=== PATIENT | male | born 1990 | race American Indian/Alaskan Native ===

== ENCOUNTER 2021-05-17 17:07 | Emergency (ER) | payer MEDICAID ==
[2021-05-17] MEDS ORDERED: ACETAMINOPHEN 325 MG TAB PO ONE (19:07)
[2021-05-17 20:12] LABS: Basophils % (Auto) 0.4 % (0.0-1.8); Eosinophils % (Auto) 0.2 % (0.0-4.3); Hematocrit 39.5 % (35.5-45.6); Hemoglobin 12.7 gm/dl (11.8-15.2); Lymphocytes # (Auto) 2.1 K/mm3 (1.2-5.4); Lymphocytes % (Auto) 23.9 % (13.4-35.0); Mean Corpuscular HGB Conc 32 % (32-34); Mean Corpuscular Volume 93 fl (84-94); Monocytes # (Auto) 0.5 K/mm3 (0.0-0.8); Monocytes % (Auto) 6.1 % (0.0-7.3); Platelet Count 199 K/mm3 (140-440); Red Blood Count 4.23 M/mm3 (3.65-5.03); Red Cell Distribution Width 14.3 % (13.2-15.2)
[2021-05-17 20:27] LABS: Alanine Aminotransferase 15 units/L (7-56); Albumin 4.6 g/dL (3.9-5); Blood Urea Nitrogen 7 mg/dL (9-20); Calcium 9.5 mg/dL (8.4-10.2); Hemolysis Index 10
[2021-05-17 20:34] LABS: BUN/Creatinine Ratio 14
--- NOTE | 2021-05-17 21:12 | Emergency Department Report ---
ED General Adult HPI - General Chief complaint: Headache Stated complaint: HEADACHE Time Seen by Provider: 05/17/21 19:20 Source: patient Mode of arrival: Ambulatory Limitations: Altered Mental Status - History of Present Illness Initial comments: History is limited due to patient's medical history of developmental delay Nurse received report from EMS. EMS report is not readily available. Nurse advised me that patient was picked up from a [employer] and complained of headache. I spoke with patient's mother which is his caregiver and she reports that she is not sure why the ambulance was called. She states that she has a history of seizures and takes Keppra. She states that she does not believe he missed any doses. She states she is not sure if he had a seizure. She states that the sister knows more information and she will speak with the sister and call back Severity scale (0 -10): 0 - Related Data Home Medications Medication Instructions Recorded Confirmed Last Taken Vimpat 01/13/21 Unknown Previous Rx's Medication Instructions Recorded Last Taken Type levETIRAcetam [Keppra TAB] 1,000 mg PO BID #120 tablet 01/15/21 Unknown Rx Allergies Allergy/AdvReac Type Severity Reaction Status Date / Time No Known Allergies Allergy Verified 01/13/21 00:51 ED Review of Systems ROS: Stated complaint: HEADACHE Other details as noted in HPI Comment: Unobtainable due to pts medical conditions ED Past Medical Hx - Past Medical History Hx Seizures: Yes - Social History Smoking Status: Never Smoker - Medications Home Medications: Home Medications Medication Instructions Recorded Confirmed Last Taken Type Vimpat 01/13/21 Unknown History levETIRAcetam [Keppra TAB] 1,000 mg PO BID #120 tablet 01/15/21 Unknown Rx ED Physical Exam - General Limitations: Altered Mental Status General appearance: alert, in no apparent distress - Head Head exam: Present: atraumatic, normocephalic - Eye Eye exam: Present: normal appearance - ENT ENT exam: Present: mucous membranes moist - Respiratory Respiratory exam: Present: normal lung sounds bilaterally. Absent: respiratory distress, wheezes, rales, rhonchi, stridor, chest wall tenderness, accessory muscle use, decreased breath sounds, prolonged expiratory - Cardiovascular Cardiovascular Exam: Present: regular rate, normal rhythm, normal heart sounds. Absent: systolic murmur, diastolic murmur, rubs, gallop - GI/Abdominal GI/Abdominal exam: Present: soft, normal bowel sounds. Absent: distended, tenderness, guarding, rebound, rigid - Neurological Exam Neurological exam: Present: alert, normal gait. Absent: motor sensory deficit - Psychiatric Psychiatric exam: Present: normal affect, normal mood - Skin Skin exam: Present: warm, dry, intact ED Course Vital Signs 05/17/21 18:46 Temperature 97.4 F L Pulse Rate 74 Respiratory 18 Rate Blood Pressure 140/97 [Right] O2 Sat by Pulse 98 Oximetry ED Medical Decision Making - Lab Data Result diagrams: 05/17/21 19:37 05/17/21 19:37 - Radiology Data Radiology results: report reviewed Ordering Physician: DEANNE LEE Date of Service: 05/17/21 Procedure(s): CT head/brain wo con Accession Number(s): [id number] cc: DEANNE LEE CT BRAIN: 05/17/2021 INDICATION / CLINICAL INFORMATION: possible seizure, CHE reported by EMS. COMPARISON: CT brain 11/05/2020 FINDINGS: BRAIN/INTRACRANIAL STRUCTURES: Unenhanced CT images of the brain demonstrate no evidence of acute abnormality. Ventricles are normal in size. A prominent cavum septum pellucidum is present. This is a normal variant, and unchanged when compared to the prior exam. There is no evidence of acute ischemic injury, hemorrhage, or mass. There are no abnormal extra- axial fluid collections. EXTRACRANIAL STRUCTURES: Unremarkable. IMPRESSION: No acute abnormality. No change when compared to 11/05/[address] scans at this location are performed using dose reduction to ALARA by means of automated exposure control. Signer Name: Steve Solano MD Signed: 05/17/2021 9:12 PM Workstation Name: [id number] Transcribed By: KANE Dictated By: Steve Solano MD Electronically Authenticated By: Steve Solano MD Signed Date/Time: 05/17/212111 DD/ 09 TD/TT: - Medical Decision Making History is limited due to patient's medical history of developmental delay Nurse received report from EMS. EMS report is not readily available. Nurse ad vised me that patient was picked up from a [employer] and complained of headache. I spoke with patient's mother which is his caregiver and she reports that she is not sure why the ambulance was called. She states that she has a history of seizures and takes Keppra. She states that she does not believe he missed any doses. She states she is not sure if he had a seizure. She states that the si ster knows more information and she will speak with the sister and call back Vitals are stable. Patient has no physical complaints. Patient was given Tylenol prior to my examination he states he does not have a headache currently. Labs are normal. CT head No acute abnormality. No change when compared to 11/05/2020. Patient given IV Keppra while in the emergency department. Patient was observed for multiple hours in the ED and had no complications or evidence of seizure. Patient is stable for discharge. Critical care attestation.: If time is entered above; I have spent that time in minutes in the direct care of this critically ill patient, excluding procedure time. ED Disposition Clinical Impression: Seizure disorder Headache Qualifiers: Headache type: unspecified Headache chronicity pattern: acute headache Intractability: not intractable Qualified Code(s): R51.9 - Headache, unspecified Disposition: 01 HOME / SELF CARE / HOMELESS Is pt being admited?: No Does the pt Need Aspirin: No Condition: Stable Additional Instructions: Please take your seizure medication as prescribed by your doctor. Follow-up with your primary care doctor. Return to emergency room for any new or worsening symptoms. Referrals: TESS BACON MD [Primary Care Provider] - 3-5 Days Time of Disposition: 22:55 Print Language: KYRGYZ
--- NOTE | 2021-05-17 21:17 | Cat Scan Report ---
CT BRAIN: 05/17/2021 INDICATION / CLINICAL INFORMATION: possible seizure, CHE reported by EMS. COMPARISON: CT brain 11/05/2020 FINDINGS: BRAIN/INTRACRANIAL STRUCTURES: Unenhanced CT images of the brain demonstrate no evidence of acute abn ormality. Ventricles are normal in size. A prominent cavum septum pellucidum is present. This is a normal varia nt, and unchanged when compared to the prior exam. There is no evidence of acute ischemic injury, hemorrhage, or mass. There are no abnormal extra-axial fluid collections. EXTRACRANIAL STRUCTURES: Unremarkable. IMPRESSION: No acute abnormality. No change when compared to 11/05/[address] scans at this location are performed using dose reduction to ALARA by means of automated expos ure control. Signer Name: Steve Solano MD Signed: 05/17/2021 9:12 PM Workstation Name: [id number]
[2021-05-17] MEDS: levETIRAcetam 1,000 MG in DEXTROSE 5% IN WATER 100 ML IV SCH (22:31)
[2021-05-18 09:54] VITALS: BP 140/102
[2021-05-18] MEDS: levETIRAcetam 1,000 MG in DEXTROSE 5% IN WATER 100 ML IV SCH (10:18)
== END 2021-05-18 10:45 | disposition home or self-care (01) ==
LOC: ED 17:07
DX: G40.909 Epilepsy, unspecified, not intractable, without status epilepticus (principal); R51.9 Headache, unspecified; Z79.899 Other long term (current) drug therapy
CPT/HCPCS: 36415; 70450; 80053; 82550; 83690; 83735; 85025; 96365; 96376; 99283; J1953; J7060

== ENCOUNTER 2021-08-19 12:50 | Emergency (ER) | payer MEDICAID ==
[2021-08-19] MEDS ORDERED: levETIRAcetam 1000 MG/NS 0.75% 1,000 MG/100 ML BAG IV ONE (13:20)
--- NOTE | 2021-08-19 13:22 | Event Note ---
Date: 08/19/21 Medical screening examination note: 30-year-old gentleman with reported history of seizure disorder, brought to the hospital by EMS with a reported complaint of possible seizure [place]. As per verbal report from nursing team, there is no head trauma. Patient currently presents is awake and alert, protecting airway, moving 4 extremities, denies physical pain, and he is in no acute distress. Obtain appropriate laboratory studies, EKG, urinalysis, x-ray the chest, loaded with Keppra. Detailed history and physical to be performed by myself or oncoming provider. Lab Results 08/19/21 08/19/21 08/19/21 Range/Units 13:51 13:51 13:51 WBC 9.5 (4.5-11.0) K/mm3 RBC 4.93 (3.65-5.03) M/mm3 Hgb 15.0 (11.8-15.2) gm/dl Hct 44.9 (35.5-45.6) % MCV 91 (84-94) fl MCH 30 (28-32) pg MCHC 33 (32-34) % RDW 13.6 (13.2-15.2) % Plt Count 195 (140-440) K/mm3 Sodium 143 (137-145) mmol/L Potassium 3.9 (3.6-5.0) mmol/L Chloride 103.9 (98-107) mmol/L Carbon Dioxide 27 (22-30) mmol/L Anion Gap 16 mmol/L BUN 16 (9-20) mg/dL Creatinine 0.8 (0.8-1.3) mg/dL Estimated GFR > 60 ml/min BUN/Creatinine Ratio 20 % Glucose 82 (75-100) mg/dL Calcium 10.6 H (8.4-10.2) mg/dL Magnesium 2.00 (1.7-2.3) mg/dL Total Bilirubin 0.40 (0.1-1.2) mg/dL AST 15 (5-40) units/L ALT 18 (7-56) units/L Alkaline Phosphatase 83 (35-129) units/L Total Creatine Kinase 157 (55-170) units/L Total Protein 8.1 (6.3-8.2) g/dL Albumin 4.8 (3.9-5) g/dL Albumin/Globulin Ratio 1.5 % Urine Color (Yellow) Urine Turbidity (Clear) Urine pH (5.0-7.0) Ur Specific [place] (1.003-1.030) Urine Protein (Negative) mg/dL Urine Glucose (UA) (Negative) mg/dL Urine Ketones (Negative) mg/dL Urine Blood (Negative) Urine Nitrite (Negative) Urine Bilirubin (Negative) Urine Urobilinogen (<2.0) mg/dL Ur Leukocyte Esterase (Negative) Urine WBC (Auto) (0.0-6.0) /HPF Urine RBC (Auto) (0.0-6.0) /HPF U Epithel Cells (Auto) (0-13.0) /HPF Calcium Oxalate Crystal Urine Mucus /HPF Plasma/Serum Alcohol < 0.01 (0-0.07) % 08/19/21 Range/Units 14:45 WBC (4.5-11.0) K/mm3 RBC (3.65-5.03) M/mm3 Hgb (11.8-15.2) gm/dl Hct (35.5-45.6) % MCV (84-94) fl MCH (28-32) pg MCHC (32-34) % RDW (13.2-15.2) % Plt Count (140-440) K/mm3 Sodium (137-145) mmol/L Potassium (3.6-5.0) mmol/L Chloride (98-107) mmol/L Carbon Dioxide (22-30) mmol/L Anion Gap mmol/L BUN (9-20) mg/dL Creatinine (0.8-1.3) mg/dL Estimated GFR ml/min BUN/Creatinine Ratio % Glucose (75-100) mg/dL Calcium (8.4-10.2) mg/dL Magnesium (1.7-2.3) mg/dL Total Bilirubin (0.1-1.2) mg/dL AST (5-40) units/L ALT (7-56) units/L Alkaline Phosphatase (35-129) units/L Total Creatine Kinase (55-170) units/L Total Protein (6.3-8.2) g/dL Albumin (3.9-5) g/dL Albumin/Globulin Ratio % Urine Color Yellow (Yellow) Urine Turbidity Clear (Clear) Urine pH 5.0 (5.0-7.0) Ur Specific [place] 1.025 (1.003-1.030) Urine Protein <15 mg/dl (Negative) mg/dL Urine Glucose (UA) Neg (Negative) mg/dL Urine Ketones Tr (Negative) mg/dL Urine Blood Neg (Negative) Urine Nitrite Neg (Negative) Urine Bilirubin Neg (Negative) Urine Urobilinogen 4.0 (<2.0) mg/dL Ur Leukocyte Esterase Neg (Negative) Urine WBC (Auto) 3.0 (0.0-6.0) /HPF Urine RBC (Auto) 6.0 (0.0-6.0) /HPF U Epithel Cells (Auto) < 1.0 (0-13.0) /HPF Calcium Oxalate Crystal 2+ Urine Mucus 3+ /HPF Plasma/Serum Alcohol (0-0.07) %
[2021-08-19 14:22] LABS: Hematocrit 44.9 % (35.5-45.6); Mean Corpuscular HGB Conc 33 % (32-34); Mean Corpuscular Volume 91 fl (84-94); Platelet Count 195 K/mm3 (140-440); Red Blood Count 4.93 M/mm3 (3.65-5.03); Red Cell Distribution Width 13.6 % (13.2-15.2)
[2021-08-19 14:40] LABS: Alanine Aminotransferase 18 units/L (7-56); Albumin 4.8 g/dL (3.9-5); BUN/Creatinine Ratio 20; Blood Urea Nitrogen 16 mg/dL (9-20); Calcium 10.6 mg/dL (8.4-10.2); Hemolysis Index 10
--- NOTE | 2021-08-19 14:59 | XRay Report ---
CHEST 1 VIEW INDICATION / CLINICAL INFORMATION: seizure. COMPARISON: 06/10/2021 FINDINGS: SUPPORT DEVICES: None. HEART / MEDIASTINUM: No significant abnormality. LUNGS / PLEURA: No significant pulmonary or pleural abnormality. No pneumothorax. ADDITIONAL FINDINGS: No significant additional findings. IMPRESSION: 1. No acute findings. Signer Name: Lee Laguerre MD Signed: 08/19/2021 2:54 PM Workstation Name: [id number]
[2021-08-19 15:12] LABS: Bilirubin,Urine NEG (Negative); Blood,Urine NEG (Negative); Color,Urine Yellow (Yellow); Protein,Urine <15 mg/dL mg/dL (Negative)
[2021-08-19 15:18] LABS: Calcium Oxalate Crystals,Urine 2+; Mucus,Urine 3+ /HPF
--- NOTE | 2021-08-19 16:48 | Emergency Department Report ---
ED Seizure HPI - General Chief Complaint: Seizure Stated Complaint: SEIZURE Time Seen by Provider: 08/19/21 14:33 Source: patient, EMS ( EMS documentation not available at time of chart dictation ), RN notes reviewed, old records reviewed Mode of arrival: Stretcher Limitations: Other (Patient is a poor historian) - History of Present Illness Initial Comments: The patient was evaluated in the emergency department for symptoms described in the history of present illness. He/she was evaluated in the context of the global COVID-19 pandemic, which necessitated consideration that the patient might be at risk for infection with the virus that causes COVID-19. Institutional protocols and algorithms that pertain to the evaluation of patients at risk for COVID-19 are in a state of rapid change based on information released by regulatory bodies including the CDC and federal and state organizations. These policies and algorithms were followed during the patient's care in the emergency department. Please note that these policies, procedures and recommendations changed on a rapid basis. This is a pleasant and cooperative 30-year-old gentleman, with a history of seizure disorder, who presents to department with EMS with a possible seizure. His past medical history includes seizure disorder, and intellectual deficit. As per verbal report from nursing team, who received verbal report from EMS, the patient did not fall or hit his head. The patient currently denies headache, neck pain, chest pain, abdominal pain, shortness of breath and urinary symptoms. He denies complaints at this time. He is observed in the department for hours, loaded with Keppra, and does not have clinical decompensation. MD Complaint: possible seizure -: This afternoon Seizure History: known seizure disorder Place: other (Patient at a store) Associated Symptoms: denies other symptoms - Related Data Home Medications Medication Instructions Recorded Confirmed Last Taken Vimpat 01/13/21 Unknown Previous Rx's Medication Instructions Recorded Last Taken Type levETIRAcetam [Keppra TAB] 1,000 mg PO BID #120 tablet 08/19/21 Unknown Rx Allergies Allergy/AdvReac Type Severity Reaction Status Date / Time No Known Allergies Allergy Verified 01/13/21 00:51 ED Review of Systems ROS: Stated complaint: SEIZURE Other details as noted in HPI Constitutional: denies: fever Eyes: denies: eye discharge ENT: denies: epistaxis Respiratory: denies: cough Cardiovascular: denies: chest pain Gastrointestinal: denies: abdominal pain Genitourinary: denies: dysuria Neurological: denies: weakness ED Past Medical Hx - Past Medical History Hx Seizures: Yes Additional medical history: autism - Social History Smoking Status: Never Smoker - Medications Home Medications: Home Medications Medication Instructions Recorded Confirmed Last Taken Type Vimpat 01/13/21 Unknown History levETIRAcetam [Keppra TAB] 1,000 mg PO BID #120 tablet 08/19/21 Unknown Rx ED Physical Exam - General Limitations: Other (Developmental delay) General appearance: alert, in no apparent distress - Head Head exam: Present: atraumatic, normocephalic - Eye Eye exam: Present: normal appearance, EOMI. Absent: nystagmus - ENT ENT exam: Present: normal exam, normal orophraynx, mucous membranes moist, normal external ear exam - Neck Neck exam: Present: normal inspection, full ROM. Absent: tenderness, meningismus - Respiratory Respiratory exam: Present: normal lung sounds bilaterally. Absent: respiratory distress, wheezes, rales, rhonchi, stridor, decreased breath sounds - Cardiovascular Cardiovascular Exam: Present: regular rate, normal rhythm, normal heart sounds. Absent: bradycardia, tachycardia, irregular rhythm, systolic murmur, diastolic murmur, rubs, gallop - GI/Abdominal GI/Abdominal exam: Present: soft. Absent: distended, tenderness, guarding, re bound, rigid, pulsatile mass - Rectal Rectal exam: Present: deferred - Extremities Exam Extremities exam: Present: normal inspection, full ROM, other (2+ pulses noted in the bilateral upper and lower extremities. There is no palpable cord. negative Homans sign. Muscular compartments are soft. The pelvis is stable.). Absent: pedal edema, calf tenderness - Back Exam Back exam: Present: normal inspection. Absent: tenderness, CVA tenderness (R), CVA tenderness (L), paraspinal tenderness, vertebral tenderness - Neurological Exam Neurological exam: Present: alert, other (No facial droop. Tongue midline. Extraocular movements intact bilaterally. Facial sensation intact to light touch in V1, V2, V3 distribution bilaterally. 5 and a 5 strength in 4 extremities. Sensation intact to light touch in 4 extremities.) - Psychiatric Psychiatric exam: Present: flat affect - Skin Skin exam: Present: warm, dry, intact, normal color. Absent: rash ED Course Vital Signs 08/19/21 08/19/21 08/19/21 13:50 14:00 14:16 Temperature 98.4 F Pulse Rate 94 H 91 H 85 Respiratory 13 16 13 Rate Blood Pressure 128/83 130/83 O2 Sat by Pulse 99 99 99 Oximetry 08/19/21 08/19/21 08/19/21 14:30 14:46 15:00 Temperature Pulse Rate 86 84 85 Respiratory 16 19 12 Rate Blood Pressure 130/83 130/83 128/60 O2 Sat by Pulse Oximetry 08/19/21 08/19/21 08/19/21 15:15 15:30 16:41 Temperature Pulse Rate 86 88 89 Respiratory 15 14 17 Rate Blood Pressure 121/78 121/78 123/80 O2 Sat by Pulse 98 97 Oximetry 08/19/21 16:46 Temperature Pulse Rate 88 Respiratory 16 Rate Blood Pressure 137/85 O2 Sat by Pulse Oximetry - Reevaluation(s) Reevaluation #1: 08/19/21 16:56 Differential diagnosis, include but not limited to: Seizure, pneumonia, UTI, electrolyte derangement Assessment and plan: 30-year-old gentleman, who is afebrile, with reassuring vital signs, with a nonfocal motor neurologic examination, with a known history of seizure, with a history of possible seizure. His physical exam is benign and noncontributory. He is loaded with Keppra in the emergency room, and he has be en observed for hours, without seizure or convulsive event. His laboratory studies are nonactionable, a chest x-ray is unremarkable, and urinalysis does not indicate need for antibiotics. We can refill his Keppra, and he can follow-up with his outpatient neurologist. - Pulse Oximetry Interpretation Digit-Finger Initial Pulse Oximetry Readin O2 Sat by Pulse Oximetry: 99 Actions Taken: none ED Medical Decision Making - Lab Data Result diagrams: 08/19/21 13:51 08/19/21 13:51 Vital Signs 08/19/21 08/19/21 08/19/21 13:50 14:00 14:16 Pulse Rate 94 H 91 H 85 Respiratory 13 16 13 Rate Blood Pressure 128/83 130/83 O2 Sat by Pulse 99 99 99 Oximetry 08/19/21 08/19/21 08/19/21 14:30 14:46 15:00 Pulse Rate 86 84 85 Respiratory 16 19 12 Rate Blood Pressure 130/83 130/83 128/60 O2 Sat by Pulse Oximetry 08/19/21 08/19/21 08/19/21 15:15 15:30 16:41 Pulse Rate 86 88 89 Respiratory 15 14 17 Rate Blood Pressure 121/78 121/78 123/80 O2 Sat by Pulse 98 97 Oximetry 08/19/21 16:46 Pulse Rate 88 Respiratory 16 Rate Blood Pressure 137/85 O2 Sat by Pulse Oximetry Temperature is 98.4 degrees orally - EKG Data -: EKG Interpreted by Pa EKG shows normal: sinus rhythm Rate: normal - EKG Data 08/19/21 16:56 The EKG is interpreted at 13: 29 Sinus rhythm, rate 88 bpm. Normal axis, normal P wave axis, high left ventricular voltage, QTC 4 4 4 ms. There is no endorsement of chest pain. This is an abnormal EKG. This is not a STEMI - Radiology Data Radiology results: pending, report reviewed, image reviewed CHEST 1 VIEW INDICATION / CLINICAL INFORMATION: seizure. COMPARISON: 06/10/2021 FINDINGS: SUPPORT DEVICES: None. HEART / MEDIASTINUM: No significant abnormality. LUNGS / PLEURA: No significant pulmonary or pleural abnormality. No pneumothorax. ADDITIONAL FINDINGS: No significant additional findings. IMPRESSION: 1. No acute findings. Signer Name: Lee Laguerre MD Signed: 08/19/2021 1:54 PM Workstation Name: [id number] Critical care attestation.: If time is entered above; I have spent that time in minutes in the direct care of this critically ill patient, excluding procedure time. ED Disposition Clinical Impression: Seizure disorder Disposition: 01 HOME / SELF CARE / HOMELESS Is pt being admited?: No Does the pt Need Aspirin: No Condition: Good Instructions: Seizure, Adult Additional Instructions: Do not drive or operate motor vehicles for the next 6 months, or until cleared to do so by a primary care doctor or neurologist. Avoid consumption of alcohol, tobacco, smoke products, and please follow-up with your outpatient primary care doctor or neurologist within the next week. Please continue current seizure medications. Please return to the emergency room right away with new pain, worsened pain, migration of pain, projectile vomiting, change in mental status, confusion, inability tolerate liquid feeds, new, worsened or different symptoms not present on the initial emergency room evaluation Referrals: DULCE MAX MD [Referring] - 3-5 Days DANAY HERNANDEZ MD [Staff Physician] - 3-5 Days [facility] [Provider Group] - 3-5 Days
[2021-08-19] MEDS: levETIRAcetam 500 MG TAB PO SCH (22:43)
--- NOTE | 2021-08-20 10:49 | Electrocardiograph Report ---
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
[2021-08-20 15:16] VITALS: BP 116/67
[2021-08-20] MEDS: levETIRAcetam 500 MG TAB PO SCH (15:19)
== END 2021-08-20 18:12 | disposition home or self-care (01) ==
LOC: ED 12:50
DX: G40.909 Epilepsy, unspecified, not intractable, without status epilepticus (principal); F84.0 Autistic disorder
CPT/HCPCS: 36415; 71045; 80053; 81001; 82550; 83735; 85027; 93005; 96374; 99284; J1953; 80320; G0480

== ENCOUNTER 2021-09-08 18:51 | Emergency (ER) | payer MEDICAID ==
--- NOTE | 2021-09-08 19:49 | Emergency Department Report ---
HPI - General Chief Complaint: Altered Mental Status PUI?: No Time Seen by Provider: 09/08/21 19:27 - HPI HPI: 30-year-old male with a documented history of seizure disorder, per chart review, questionable history of intellectual development delay,, presents for evaluation. EMSs report is not readily available. Patient's oncoming nurse did not receive report from the prior nurse and so the patient's etiology with respect to reasoning for presenting to the emergency department is unclear. Patient's mother nor his sister nor any other family member is present to provide additional HPI. Patient denies any symptoms when asked about this physician at the patient's bedside. Pain 0 out of 10. ED Past Medical Hx - Past Medical History Previous Medical History?: Yes Hx Seizures: Yes Additional medical history: autism - Social History Smoking Status: Never Smoker Substance Use Type: Other (Unknown) - Medications Home Medications: Home Medications Medication Instructions Recorded Confirmed Last Taken Type Vimpat 01/13/21 Unknown History levETIRAcetam [Keppra TAB] 1,000 mg PO BID #120 tablet 08/19/21 Unknown Rx ED Review of Systems ROS: Stated complaint: AMS Other details as noted in HPI Comment: Unobtainable due to pts medical conditions Physical Exam - Physical Exam Vital Signs: Vital Signs 09/08/21 18:53 Temperature 97.9 F Pulse Rate 88 Respiratory 16 Rate Blood Pressure 130/80 [Left] O2 Sat by Pulse 97 Oximetry General: Gen: pt is well appearing, no acute distress; patient observed rocking back and forth in his stretcher, smiling, making hand gestures to himself, calm, cooperative, no acute distress HEENT: Normocephalic atraumatic pupils equally round and reactive to light ext raocular muscles intact sclera anicteric Neck: Full range of motion, no midline spinal tenderness palpation, no JVD, no carotid bruits, no nuchal rigidity CVS: S1-S2 regular rate and rhythm with no gallops rubs or murmurs, chest wall nontender Pulmonary: Clear to auscultation bilaterally, no wheezes rales or rhonchi Abdomen: Soft nondistended nontender no guarding or rebound tenderness, no palpable deformities or step-offs, normal active bowel sounds, no hepatosplenomegaly, no pulsatile masses : Deferred Extremities: No cyanosis no clubbing no edema, intact distal peripheral pulses, Integumentary: Skin normal, no petechia no purpura no abscess no lacerations no evidence of trauma no evidence of infection Neuro: Patient is awake alert and oriented to person place time situation, cranial nerves II through XII intact, no focal neurodeficits, sensation grossly tact, ambulates with normal steady gait Psych: Calm cooperative, mood affect normal ED Course Vital Signs 09/08/21 18:53 Temperature 97.9 F Pulse Rate 88 Respiratory 16 Rate Blood Pressure 130/80 [Left] O2 Sat by Pulse 97 Oximetry - Reevaluation(s) Reevaluation #1: 09/08/21 19:46 Pt's mother documented phone number of: [phone] telephoned by me. Per voicemail system, message cannot be left. Pt's sister's documented phone number of: [phone] telephoned by me. Phone call made by me: Phone rings and no one answers. Will attempt repeat telephone call. Reevaluation #2: 09/08/21 20:16 Patient reassessed, he remains comfortable and calm, he denies any complaints, no altered sensorium, postictal state, or seizure activity appreciated. I again made multiple repeat telephone calls to the aforementioned telephone numbers to attempt to obtain direct contact with the patient's mother and sister. I am unable to reach anyone. Reevaluation #3: 09/08/21 21:31 Patient observed coloring on paper and with crayons. Mental status remains unchanged. He denies any complaints but is requesting food. No seizure-like activity witnessed by this provider other staff members. We will continue to monitor. Reevaluation #4: 09/08/21 21:31 Repeat call made to family members at the numbers documented in the patient's electronic health record. During this time I was able to leave a voicemail message and requested a return call via the telephone number provided that is listed as belonging to the patient's sister, at [phone]. Repeat call made to phone number listed as having belong to the patient's number at [phone]. No ability to leave a voicemail and the phone was not answered by anyone. ED Medical Decision Making - Lab Data Result diagrams: 09/08/21 20:01 09/08/21 20:01 - Medical Decision Making 30-year-old male with seizure disorder brought in by EMS [facility] Vital signs stable. Patient is well-appearing and denies any complaints. He has been observed for several hours without any manifestation and altered sensorium, postictal state, or seizure disorder. Seru m labs reviewed and they are grossly unremarkable. Patient has been medically cleared by this provider. Multiple attempts were made by myself to telephone the patient's mother as well as his sister via the telephone numbers documented in his prior ER visit. I was unsuccessfully able to reach anyone. Case management consult placed but given that it is currently Friday night, they are not available to provide immediate assistance with obtaining successful contact with the patient's family members and therefore the patient is not a safe discharge at this time. Patient will be held overnight in the emergency department until a safe discharge can be obtained. Due to change in provider shift time @ 12:00am, pt signed out to Dr. Jem Mcgee for overnight management. Critical care attestation.: If time is entered above; I have spent that time in minutes in the direct care of this critically ill patient, excluding procedure time. ED Disposition Clinical Impression: Wandering Disposition: 30 STILL A PATIENT Is pt being admited?: No Does the pt Need Aspirin: No Condition: Stable
[2021-09-08 20:45] LABS: Basophils % (Auto) 0.5 % (0.0-1.8); Eosinophils % (Auto) 0.2 % (0.0-4.3); Hematocrit 43.1 % (35.5-45.6); Hemoglobin 14.2 gm/dl (11.8-15.2); Lymphocytes # (Auto) 1.1 K/mm3 (1.2-5.4); Lymphocytes % (Auto) 16.3 % (13.4-35.0); Mean Corpuscular HGB Conc 33 % (32-34); Mean Corpuscular Volume 91 fl (84-94); Monocytes # (Auto) 0.7 K/mm3 (0.0-0.8); Monocytes % (Auto) 9.8 % (0.0-7.3); Platelet Count 213 K/mm3 (140-440); Red Blood Count 4.74 M/mm3 (3.65-5.03); Red Cell Distribution Width 13.2 % (13.2-15.2)
[2021-09-08 21:01] LABS: Alanine Aminotransferase 34 units/L (7-56); Albumin 4.9 g/dL (3.9-5); Blood Urea Nitrogen 14 mg/dL (9-20); Calcium 9.8 mg/dL (8.4-10.2); Hemolysis Index 5
[2021-09-08 21:13] LABS: BUN/Creatinine Ratio 20
[2021-09-09] MEDS ORDERED: levETIRAcetam 500 MG TAB PO SCH ×2 (10:00→17:17)
[2021-09-09] MEDS ORDERED: LORazepam 2 MG/ML VIAL IM STA (22:30)
--- NOTE | 2021-09-09 23:07 | Event Note ---
Date: 09/09/21 Of note this provider shift started at 3 PM today. Patient was not signed out to me by , the outgoing ED attending physician. I evaluated this patient again independently. He is comfortable and well-appearing. I reviewed the patient's documented progress notes throughout the night as well as throughout the day as documented by ancillary staff members. The patient is comfortable and well-appearing. He denies any complaints. Staff members report they have repeatedly attempted to telephone the patient's mother who is phone number was documented on file. She was not able to be reached successfully. Additionally per review of the patient's chart, the patient was written for his routine antiepileptic by Dr. Mcgee, and it was confirmed that these medications were provided to the patient throughout his emergency department course. Charge nurse (Belkys) has reported that given that today is Friday, there was no case management present. Plan will be to continue to await case management evaluation and suggestion, as the patient cannot be discharged to home and his health care proxy (his mother) cannot be reached. Due to change in provider shift time @ 12:00am, pt signed out to overnight ER attending physician, , for overnight management.
--- NOTE | 2021-09-10 21:20 | Event Note ---
Date: 09/10/21 This provider's shift started at 09:00pm this evening. I did not receive this patient on sign out from another provider. Upon my arrival, I was informed by the nursing staff of the pt's ED course and the documented report that the pt would be picked up by his mother. Chart reviewed. Pt is well appearing, calm, cooperative. He denies any complaints. His vitals are stable. Pt will continue to be held in the emergency department for further management by Case Management/Social Work tomorrow. Due to change in provider shift time @ 06:00am on 09/11/2021, pt signed out to oncoming ER attending, Dr. Ruggiero, for definitive management in consultation with Case Management/Social Work.
[2021-09-10] MEDS ORDERED: levETIRAcetam 500 MG TAB PO SCH (23:00)
[2021-09-11] MEDS ORDERED: LORazepam 2 MG/ML VIAL ONE ×2 (01:04→11:27)
[2021-09-11] MEDS ORDERED: LORazepam 2 MG/ML VIAL IM ONE (01:06)
[2021-09-11 02:11] LABS: Basophils # (Auto) 0.1 K/mm3 (0.0-0.1); Basophils % (Auto) 0.6 % (0.0-1.8); Eosinophils # (Auto) 0.1 K/mm3 (0.0-0.4); Eosinophils % (Auto) 1.3 % (0.0-4.3); Hematocrit 42.6 % (35.5-45.6); Lymphocytes # (Auto) 3.2 K/mm3 (1.2-5.4); Mean Corpuscular HGB Conc 33 % (32-34); Mean Corpuscular Volume 92 fl (84-94); Monocytes # (Auto) 0.6 K/mm3 (0.0-0.8); Monocytes % (Auto) 6.5 % (0.0-7.3); Platelet Count 249 K/mm3 (140-440); Red Blood Count 4.64 M/mm3 (3.65-5.03); Red Cell Distribution Width 13.5 % (13.2-15.2)
[2021-09-11] MEDS ORDERED: levETIRAcetam 1000 MG/NS 0.75% 1,000 MG/100 ML BAG IV ONE (11:36)
--- NOTE | 2021-09-11 11:36 | Event Note ---
Date: 09/11/21 I was called to hallway this patient bedside while patient actively seizing. Immediate order to be given ativan 2 mg IM x 1 as no iv line yet. Pt was waiting for case management for transportation home. Also was ordered for Keppra 1g IVPB x 1 for seizure stabilization. Pt transferred to room 21 for his treatment. Pt seizure observed to be resolving and now postictal. Will continue to observe this patient before discharge.
[2021-09-11] MEDS ORDERED: LORazepam 2 MG/ML VIAL IV ONE (11:39)
[2021-09-11 16:49] VITALS: BP 123/81
== END 2021-09-11 15:43 | disposition still patient (30) ==
LOC: ED 18:51
DX: R41.82 Altered mental status, unspecified (principal); R56.9 Unspecified convulsions
CPT/HCPCS: 36415; 80053; 80177; 83735; 84443; 85025; 96372; 96374; 99284; J1953; J2060; 80320; G0480

== ENCOUNTER 2021-10-20 16:02 | Inpatient (IN) | payer MEDICAID ==
--- NOTE | 2021-10-20 16:22 | Emergency Department Report ---
<JOHNNY ELIZONDO - Last Filed: 10/20/21 23:56> ED General Adult HPI - General Chief complaint: Seizure Stated complaint: SEIZURES PUI?: No Time Seen by Provider: 10/20/21 16:12 Source: RN/MD, EMS Mode of arrival: Stretcher Limitations: Altered Mental Status - History of Present Illness Initial comments: This is a 30-year-old male with medical history of Fragile X syndrome and also mental retardation and seizure who appears to be on Keppra likely 1000 mg twice daily and also Vimpat. Patient brought in by EMS with concerns of seizure. At the time my evaluation patient is at the entrance bay against the wall and patient appears to be postictal. No review of system was able to be obtained. Patient's airway maintains intact. Severity scale (0 -10): 0 - Related Data Home Medications Medication Instructions Recorded Confirmed Last Taken Vimpat 01/13/21 Unknown Previous Rx's Medication Instructions Recorded Last Taken Type Lacosamide [Vimpat] 100 mg PO Q12HR #60 tablet 11/07/20 Unknown Rx levETIRAcetam [Keppra TAB] 500 mg PO BID 30 Days #60 tablet 11/26/20 Unknown Rx levETIRAcetam [Keppra TAB] 500 mg PO BID #60 tablet 06/10/21 Unknown Rx levETIRAcetam [Keppra TAB] 1,000 mg PO BID #120 tablet 08/19/21 Unknown Rx levETIRAcetam [Keppra TAB] 1,000 mg PO BID 30 Days #60 tablet 09/11/21 Unknown Rx NS Allergies Allergy/AdvReac Type Severity Reaction Status Date / Time No Known Allergies Allergy Verified 10/05/21 10:50 ED Review of Systems Comment: Unobtainable due to pts medical conditions ED Past Medical Hx - Past Medical History Previous Medical History?: Yes Hx Congestive Heart Failure: No Hx Diabetes: No Hx Seizures: Yes Hx Asthma: No Hx COPD: No Hx HIV: No Additional medical history: MR - Surgical History Additional Surgical History: Cannot be obtained from the patient secondary to fragile X and developmental delay - Social History Smoking Status: Unknown if ever smoked - Medications Home Medications: Home Medications Medication Instructions Recorded Confirmed Last Taken Type Lacosamide [Vimpat] 100 mg PO Q12HR #60 tablet 11/07/20 11/25/20 Unknown Rx levETIRAcetam [Keppra TAB] 500 mg PO BID 30 Days #60 tablet 11/26/20 Unknown Rx Vimpat 01/13/21 Unknown History levETIRAcetam [Keppra TAB] 500 mg PO BID #60 tablet 06/10/21 Unknown Rx levETIRAcetam [Keppra TAB] 1,000 mg PO BID #120 tablet 08/19/21 Unknown Rx levETIRAcetam [Keppra TAB] 1,000 mg PO BID 30 Days #60 tablet 09/11/21 Unknown Rx NS ED Physical Exam - General Limitations: Altered Mental Status General appearance: postictal - Head Head exam: Present: atraumatic, normocephalic, normal inspection - Eye Eye exam: Present: normal appearance, PERRL, EOMI Pupils: Present: normal accommodation - ENT ENT exam: Present: normal exam, mucous membranes moist - Neck Neck exam: Present: normal inspection, full ROM - Respiratory Respiratory exam: Present: normal lung sounds bilaterally - Cardiovascular Cardiovascular Exam: Present: normal rhythm, tachycardia, normal heart sounds - GI/Abdominal GI/Abdominal exam: Present: soft - Extremities Exam Extremities exam: Present: normal inspection, full ROM, normal capillary refill - Back Exam Back exam: Present: normal inspection - Neurological Exam Neurological exam: Present: altered - Skin Skin exam: Present: normal color ED Course - Reevaluation(s) Reevaluation #1: 10/20/21 17:15 EKG W/ PROLONG QT; NO BLOOD DRAW OF YET. I WILL START EMPIRICALLY ON MAGNESIUM SULFATE. 10/20/21 19:48 Patient arouse-able to pain; CK / lactate elevated; will give additional fluid. Will get case management involved. 10/20/21 21:20 EKG AT 2059: SINUS TACHY AT 101 QT/QTC AT 339/439. 10/20/21 21:41 Patient is more alert now. Per ER staff, this is patient's baseline who doesn't talk but only smiles. 10/20/21 23:55 CK downtrending, patient to continue to drink fluids and Keppra 1000mg BID. Pending case management. ED Medical Decision Making - Lab Data Result diagrams: 10/20/21 16:39 10/20/21 16:39 - EKG Data -: EKG Interpreted by Me EKG shows normal: sinus rhythm Rate: normal - EKG Data When compared to previous EKG there are: no significant change 10/20/21 17:11 EKG AT 1706 WITH NSR AT 96 BPM; NO ST ELEVATION OR DEPRESSION. PROLONGED QT INTERVAL AT 453/573 QT/QTC ED Disposition Clinical Impression: Rhabdomyolysis, Seizure disorder, Seizure Disposition: 09 ADMITTED INPATIENT Condition: Stable Referrals: TESS BACON MD [Primary Care Provider] - 3-5 Days <LOUIE CERVANTES - Last Filed: 10/21/21 01:08> ED Review of Systems ROS: Stated complaint: SEIZURES Other details as noted in HPI ED Course Vital Signs 10/20/21 10/20/21 10/20/21 16:02 16:42 16:45 Temperature 98.2 F Pulse Rate 104 H 105 H Respiratory 18 14 17 Rate Blood Pressure 126/79 Blood Pressure 141/91 [Left] O2 Sat by Pulse 99 Oximetry 10/20/21 10/20/21 17:01 17:02 Temperature Pulse Rate 85 Respiratory 13 Rate Blood Pressure 130/87 Blood Pressure [Left] O2 Sat by Pulse 97 99 Oximetry - Reevaluation(s) Reevaluation #1: 10/21/21 01:07 Patient is seen and examined. He is in no acute distress. His laboratory studies are significant for rhabdomyolysis which appears to be new onset. Initial CK 12,500, downtrending to 10,600. This is very impressive, when compared to prior levels of CK. White blood cell count is likely a stress reaction. No further seizures have been noted. Noncontrast CT scan of the brain negative for acute findings. X-ray of the chest negative for acute findings. Given history of seizures, with accompanying rhabdomyolysis, patient meets criteria for admission, hospitalization and observation. Therefore, we will admit this patient to the hospital service, under the care of Dr. Kapadia Medical decision makin-year-old gentleman with rhabdomyolysis in the context of seizures, requires medical admission for observation, hydration, and continuation of AED medications ED Medical Decision Making - Lab Data Result diagrams: 10/20/21 16:39 10/20/21 23:30 Vital Signs 10/20/21 10/20/21 10/20/21 16:02 16:42 16:45 Temperature 98.2 F Pulse Rate 104 H 105 H Respiratory 18 14 17 Rate Blood Pressure 126/79 Blood Pressure 141/91 [Left] O2 Sat by Pulse 99 Oximetry 10/20/21 10/20/21 17:01 17:02 Temperature Pulse Rate 85 Respiratory 13 Rate Blood Pressure 130/87 Blood Pressure [Left] O2 Sat by Pulse 97 99 Oximetry Lab Results 10/20/21 10/20/21 10/20/21 Range/Units 16:39 16:39 16:39 WBC 14.9 H (4.5-11.0) K/mm3 RBC 5.33 H (3.65-5.03) M/mm3 Hgb 16.4 H (11.8-15.2) gm/dl Hct 51.4 H (35.5-45.6) % MCV 96 H (84-94) fl MCH 31 (28-32) pg MCHC 32 (32-34) % RDW 14.6 (13.2-15.2) % Plt Count 206 (140-440) K/mm3 Sodium 143 (137-145) mmol/L Potassium 4.3 (3.6-5.0) mmol/L Chloride 101.7 (98-107) mmol/L Carbon Dioxide 21 L (22-30) mmol/L Anion Gap 25 mmol/L BUN 49 H (9-20) mg/dL Creatinine 1.1 (0.8-1.3) mg/dL Estimated GFR > 60 ml/min BUN/Creatinine Ratio 45 % Glucose 91 (75-100) mg/dL Lactic Acid 2.20 H* (0.7-2.0) mmol/L Calcium 10.0 (8.4-10.2) mg/dL Magnesium 2.90 H (1.7-2.3) mg/dL Total Bilirubin 1.10 (0.1-1.2) mg/dL AST 186 H (5-40) units/L ALT 50 (7-56) units/L Alkaline Phosphatase 69 (35-129) units/L Total Creatine Kinase 62170 H (55-170) units/L Total Protein 8.1 (6.3-8.2) g/dL Albumin 5.1 H (3.9-5) g/dL Albumin/Globulin Ratio 1.7 % Plasma/Serum Alcohol (0-0.07) % 10/20/21 10/20/21 10/20/21 Range/Units 16:39 22:40 23:30 WBC (4.5-11.0) K/mm3 RBC (3.65-5.03) M/mm3 Hgb (11.8-15.2) gm/dl Hct (35.5-45.6) % MCV (84-94) fl MCH (28-32) pg MCHC (32-34) % RDW (13.2-15.2) % Plt Count (140-440) K/mm3 Sodium (137-145) mmol/L Potassium (3.6-5.0) mmol/L Chloride (98-107) mmol/L Carbon Dioxide (22-30) mmol/L Anion Gap mmol/L BUN (9-20) mg/dL Creatinine (0.8-1.3) mg/dL Estimated GFR ml/min BUN/Creatinine Ratio % Glucose (75-100) mg/dL Lactic Acid 1.60 (0.7-2.0) mmol/L Calcium (8.4-10.2) mg/dL Magnesium (1.7-2.3) mg/dL Total Bilirubin (0.1-1.2) mg/dL AST (5-40) units/L ALT (7-56) units/L Alkaline Phosphatase (35-129) units/L Total Creatine Kinase 85263 H (55-170) units/L Total Protein (6.3-8.2) g/dL Albumin (3.9-5) g/dL Albumin/Globulin Ratio % Plasma/Serum Alcohol < 0.01 (0-0.07) % 10/20/21 Range/Units 23:30 WBC (4.5-11.0) K/mm3 RBC (3.65-5.03) M/mm3 Hgb (11.8-15.2) gm/dl Hct (35.5-45.6) % MCV (84-94) fl MCH (28-32) pg MCHC (32-34) % RDW (13.2-15.2) % Plt Count (140-440) K/mm3 Sodium 145 (137-145) mmol/L Potassium 3.9 (3.6-5.0) mmol/L Chloride 107.9 H (98-107) mmol/L Carbon Dioxide 21 L (22-30) mmol/L Anion Gap 20 mmol/L BUN 38 H (9-20) mg/dL Creatinine 0.8 (0.8-1.3) mg/dL Estimated GFR > 60 ml/min BUN/Creatinine Ratio 48 % Glucose 96 (75-100) mg/dL Lactic Acid (0.7-2.0) mmol/L Calcium 9.4 (8.4-10.2) mg/dL Magnesium (1.7-2.3) mg/dL Total Bilirubin (0.1-1.2) mg/dL AST (5-40) units/L ALT (7-56) units/L Alkaline Phosphatase (35-129) units/L Total Creatine Kinase (55-170) units/L Total Protein (6.3-8.2) g/dL Albumin (3.9-5) g/dL Albumin/Globulin Ratio % Plasma/Serum Alcohol (0-0.07) % - Radiology Data Radiology results: pending, report reviewed, image reviewed CT HEAD WITHOUT CONTRAST INDICATION / CLINICAL INFORMATION: seizure; post ictal. TECHNIQUE: All CT scans at this location are performed using CT dose reduction for ALARA by means of automated exposure control. COMPARISON: Head CT 05/17/2021 FINDINGS: HEMORRHAGE: No evidence of intracranial hemorrhage or extra-axial fluid collection. EXTRA-AXIAL SPACES: Cortical sulci, sylvian fissures and basilar cisterns have an unremarkable appearance. VENTRICULAR SYSTEM: Persistence of the cava septum pellucidum and cavum vergae is incidentally noted. The third and lateral ventricles are of otherwise normal size and configuration. CEREBRAL PARENCHYMA: No areas of abnormal brain parenchymal attenuation are identified. There is no indication of recent infarction. MIDLINE SHIFT OR HERNIATION: There is no mass effect. CEREBELLUM / BRAINSTEM: Brainstem and cerebellum have an unremarkable appearance. Incidental note is made of a alvino cisterna magna. MIDLINE STRUCTURES:No abnormalities of the pituitary gland or pineal region are identified. INTRACRANIAL VESSELS:No abnormalities are identified on this noncontrast head CT. ORBITS: visualized portions of the orbits have an unremarkable appearance. SOFT TISSUES of HEAD: No significant abnormality. CALVARIUM: Evaluation of bone windows reveals no abnormalities. PARANASAL SINUSES / MASTOID AIR CELLS: Visualized portions of the paranasal sinuses are free from inflammatory mucosal disease. Mastoid air cells are normally pneumatized. IMPRESSION: 1. No significant intercranial abnormality. No interval change comparison to previous study 05/17/2021. Signer Name: Dk Heaton MD Signed: 10/20/2021 5:52 PM Workstation Name: [id number] CHEST 1 VIEW 10/20/2021 4:28 PM INDICATION / CLINICAL INFORMATION: seizure. COMPARISON: Chest radiograph 08/19/2021 FINDINGS: SUPPORT DEVICES: None. HEART / MEDIASTINUM: No significant abnormality. LUNGS / PLEURA: No significant pulmonary or pleural abnormality. No pneumothorax. ADDITIONAL FINDINGS: No significant additional findings. IMPRESSION: 1. No acute findings. Signer Name: Darion Thorne MD Signed: 10/20/2021 3:54 PM Workstation Name: [id number] Critical care attestation.: If time is entered above; I have spent that time in minutes in the direct care of this critically ill patient, excluding procedure time. ED Disposition Is pt being admited?: Yes Does the pt Need Aspirin: No
[2021-10-20] MEDS ORDERED: SODIUM CHLORIDE 0.9% 1000 ML 1,000 ML IV ONE (16:24)
--- NOTE | 2021-10-20 16:59 | XRay Report ---
CHEST 1 VIEW 10/20/2021 4:28 PM INDICATION / CLINICAL INFORMATION: seizure. COMPARISON: Chest radiograph 08/19/2021 FINDINGS: SUPPORT DEVICES: None. HEART / MEDIASTINUM: No significant abnormality. LUNGS / PLEURA: No significant pulmonary or pleural abnormality. No pneumothorax. ADDITIONAL FINDINGS: No significant additional findings. IMPRESSION: 1. No acute findings. Signer Name: Darion Thorne MD Signed: 10/20/2021 4:54 PM Workstation Name: [employer]
[2021-10-20] MEDS ORDERED: levETIRAcetam 2,000 MG in DEXTROSE 5% IN WATER 100 ML IV ONE (17:00)
[2021-10-20 17:38] LABS: Hematocrit 51.4 % (35.5-45.6); Hemoglobin 16.4 gm/dl (11.8-15.2); Mean Corpuscular HGB Conc 32 % (32-34); Mean Corpuscular Volume 96 fl (84-94); Platelet Count 206 K/mm3 (140-440); Red Blood Count 5.33 M/mm3 (3.65-5.03); Red Cell Distribution Width 14.6 % (13.2-15.2)
[2021-10-20 17:47] LABS: Alanine Aminotransferase 50 units/L (7-56); Albumin 5.1 g/dL (3.9-5); BUN/Creatinine Ratio 45; Blood Urea Nitrogen 49 mg/dL (9-20); Hemolysis Index 35
[2021-10-20] MEDS ORDERED: MAGNESIUM SULFATE 1 GM in SODIUM CHLORIDE 0.9% 50 ML IV ONE (18:00)
--- NOTE | 2021-10-20 18:56 | Cat Scan Report ---
CT HEAD WITHOUT CONTRAST INDICATION / CLINICAL INFORMATION: seizure; post ictal. TECHNIQUE: All CT scans at this location are performed using CT dose reduction for ALARA by means of automated e xposure control. COMPARISON: Head CT 05/17/2021 FINDINGS: HEMORRHAGE: No evidence of intracranial hemorrhage or extra-axial fluid collection. EXTRA-AXIAL SPACES: Cortical sulci, sylvian fissures and basilar cisterns have an unremarkable appear ance. VENTRICULAR SYSTEM: Persistence of the cava septum pellucidum and cavum vergae is incidentally noted. The third and lateral ventricles are of otherwise normal size and configuration. CEREBRAL PARENCHYMA: No areas of abnormal brain parenchymal attenuation are identified. There is no i ndication of recent infarction. MIDLINE SHIFT OR HERNIATION: There is no mass effect. CEREBELLUM / BRAINSTEM: Brainstem and cerebellum have an unremarkable appearance. Incidental note is made of a alvino cisterna magna. MIDLINE STRUCTURES:No abnormalities of the pituitary gland or pineal region are identified. INTRACRANIAL VESSELS:No abnormalities are identified on this noncontrast head CT. ORBITS: visualized portions of the orbits have an unremarkable appearance. SOFT TISSUES of HEAD: No significant abnormality. CALVARIUM: Evaluation of bone windows reveals no abnormalities. PARANASAL SINUSES / MASTOID AIR CELLS: Visualized portions of the paranasal sinuses are free from inf lammatory mucosal disease. Mastoid air cells are normally pneumatized. IMPRESSION: 1. No significant intercranial abnormality. No interval change comparison to previous study 05/17/2021 . Signer Name: Dk Heaton MD Signed: 10/20/2021 6:52 PM Workstation Name: [id number]
[2021-10-20] MEDS ORDERED: SODIUM CHLORIDE 0.9% 1000 ML 2,000 ML IV ONE (19:47)
[2021-10-20] MEDS ORDERED: levETIRAcetam 500 MG TAB PO SCH (23:45)
[2021-10-21 00:01] LABS: BUN/Creatinine Ratio 48; Blood Urea Nitrogen 38 mg/dL (9-20); Calcium 9.4 mg/dL (8.4-10.2); Hemolysis Index 5
[2021-10-21] MEDS ORDERED: MORPHINE 4 MG/1 ML INJ IV PRN ×2 (01:09→03:41)
[2021-10-21] MEDS ORDERED: ONDANSETRON 4 MG/2 ML INJ IV PRN ×2 (01:09→03:41)
[2021-10-21] MEDS ORDERED: MORPHINE 2 MG/1 ML INJ IV PRN ×2 (01:09→03:41)
[2021-10-21] MEDS ORDERED: ACETAMINOPHEN 325 MG TAB PO PRN ×2 (01:09→03:41)
[2021-10-21] MEDS ORDERED: ALBUTEROL 2.5 MG/3 ML NEBU IH PRN (03:41)
--- NOTE | 2021-10-21 03:49 | History and Physical Report ---
History of Present Illness Date of examination: 10/21/21 Date of admission: 10/21/21 01:09 Chief complaint: seizure History of present illness: 30-year-old male with medical history of Fragile X syndrome and also mental retardation and seizure who appears to be on Keppra likely 1000 mg twice daily and also Vimpat. Patient brought in by EMS with concerns of seizure. At the time my evaluation patient is at the entrance bay against the wall and patient appears to be postictal. No review of system was able to be obtained. Patient's airway maintains intact. In the emergency room patient is found to have WBC of 14.9, lactic acid 2.[id number] scan of the head shows no significant intracranial abnormality. We are going to admit the patient will consult neurology for evaluation we also put the patient on IV fluid antibiotic Past History Past Medical History: seizures, other (Mental retardation) Past Surgical History: Other (Cannot be obtained from the patient secondary to fragile X and developmental delay) Social history: no significant social history Family history: hypertension Medications and Allergies Allergies Allergy/AdvReac Type Severity Reaction Status Date / Time No Known Allergies Allergy Verified 10/05/21 10:50 Home Medications Medication Instructions Recorded Confirmed Last Taken Type Lacosamide [Vimpat] 100 mg PO Q12HR #60 tablet 11/07/20 11/25/20 Unknown Rx levETIRAcetam [Keppra TAB] 500 mg PO BID 30 Days #60 tablet 11/26/20 Unknown Rx Vimpat 01/13/21 Unknown History levETIRAcetam [Keppra TAB] 500 mg PO BID #60 tablet 06/10/21 Unknown Rx levETIRAcetam [Keppra TAB] 1,000 mg PO BID #120 tablet 08/19/21 Unknown Rx levETIRAcetam [Keppra TAB] 1,000 mg PO BID 30 Days #60 tablet 09/11/21 Unknown Rx NS Active Meds: Active Medications Acetaminophen (Acetaminophen 325 Mg Tab) 650 mg PO Q4H PRN PRN Reason: Pain MILD(1-3)/Fever >100.5/CHE Levetiracetam (Levetiracetam 500 Mg Tab) 1,000 mg PO Q12HR AFSANEH Ondansetron HCl (Ondansetron 4 Mg/2 Ml Inj) 4 mg IV Q8H PRN PRN Reason: Nausea And Vomiting Sodium Chloride (Sodium Chloride 0.9% 10 Ml Flush Syringe) 10 ml IV BID AFSANEH Sodium Chloride (Sodium Chloride 0.9% 10 Ml Flush Syringe) 10 ml IV PRN PRN PRN Reason: LINE FLUSH Review of Systems All systems: negative Constitutional: fatigue, malaise, other (Seizure) Exam - Constitutional Vitals: Temp Pulse Resp BP Pulse Ox 98.2 F 85 13 130/87 99 10/20/21 16:02 10/20/21 17:01 10/20/21 17:01 10/20/21 17:01 10/20/21 17:02 General appearance: Present: no acute distress, well-nourished - EENT Eyes: Present: PERRL ENT: hearing intact, clear oral mucosa - Neck Neck: Present: supple, normal ROM - Respiratory Respiratory effort: normal Respiratory: bilateral: CTA - Cardiovascular Heart Sounds: Present: S1 & S2. Absent: rub, click - Extremities Extremities: pulses symmetrical, No edema Peripheral Pulses: within normal limits - Abdominal General gastrointestinal: Present: soft, non-tender, non-distended, normal bowel sounds Male genitourinary: Present: normal - Integumentary Integumentary: Present: clear, warm, dry - Musculoskeletal Musculoskeletal: gait normal, strength equal bilaterally - Psychiatric Psychiatric: appropriate mood/affect, intact judgment & insight - Neurologic Neurologic: CNII-XII intact, moves all extremities Results - Labs CBC & Chem 7: 10/20/21 16:39 10/20/21 23:30 Labs: Laboratory Last Values WBC 14.9 K/mm3 (4.5-11.0) H 10/20/21 16:39 RBC 5.33 M/mm3 (3.65-5.03) H 10/20/21 16:39 Hgb 16.4 gm/dl (11.8-15.2) H 10/20/21 16:39 Hct 51.4 % (35.5-45.6) H 10/20/21 16:39 MCV 96 fl (84-94) H 10/20/21 16:39 MCH 31 pg (28-32) 10/20/21 16:39 MCHC 32 % (32-34) 10/20/21 16:39 RDW 14.6 % (13.2-15.2) 10/20/21 16:39 Plt Count 206 K/mm3 (140-440) 10/20/21 16:39 Sodium 145 mmol/L (137-145) 10/20/21 23:30 Potassium 3.9 mmol/L (3.6-5.0) 10/20/21 23:30 Chloride 107.9 mmol/L (98-107) H 10/20/21 23:30 Carbon Dioxide 21 mmol/L (22-30) L 10/20/21 23:30 Anion Gap 20 mmol/L 10/20/21 23:30 BUN 38 mg/dL (9-20) H 10/20/21 23:30 Creatinine 0.8 mg/dL (0.8-1.3) 10/20/21 23:30 Estimated GFR > 60 ml/min 10/20/21 23:30 BUN/Creatinine Ratio 48 % 10/20/21 23:30 Glucose 96 mg/dL (75-100) 10/20/21 23:30 Lactic Acid 1.60 mmol/L (0.7-2.0) 10/20/21 22:40 Calcium 9.4 mg/dL (8.4-10.2) 10/20/21 23:30 Magnesium 2.90 mg/dL (1.7-2.3) H 10/20/21 16:39 Total Bilirubin 1.10 mg/dL (0.1-1.2) 10/20/21 16:39 AST 186 units/L (5-40) H 10/20/21 16:39 ALT 50 units/L (7-56) 10/20/21 16:39 Alkaline Phosphatase 69 units/L (35-129) 10/20/21 16:39 Total Creatine Kinase 92402 units/L (55-170) H 10/20/21 23:30 Total Protein 8.1 g/dL (6.3-8.2) 10/20/21 16:39 Albumin 5.1 g/dL (3.9-5) H 10/20/21 16:39 Albumin/Globulin Ratio 1.7 % 10/20/21 16:39 Plasma/Serum Alcohol < 0.01 % (0-0.07) 10/20/21 16:39 - Imaging and Cardiology Chest x-ray: report reviewed CT Scan - head: report reviewed Assessment and Plan VTE prophylaxis?: Mechanical Plan of care discussed with patient/family: Yes - Patient Problems (1) Rhabdomyolysis Current Visit: Yes Status: Acute Plan to address problem: Admit the patient to the medical telemetry. NPO. D5 half-normal saline at the rate of 150 cc/h. We will monitor the patient closely. We will recheck the CK in the morning (2) Seizure Current Visit: Yes Status: Acute Plan to address problem: Stable. We continue the home dose seizure medication. Reconsult neurology for evaluation we also order EEG (3) Lactic acidosis Current Visit: Yes Status: Acute Plan to address problem: D5 half-normal saline at the rate of 150 cc/h. Rocephin 2 g IV daily. We will recheck the lactic acid in 4 hours. Recheck CBC in the morning (4) Leukocytosis Current Visit: Yes Status: Acute Plan to address problem: D5 half-normal saline at the rate of 150 cc/h. Rocephin 2 g IV daily. We will do blood culture. recheck CBC in the morning (5) Acute encephalopathy Current Visit: No Status: Acute Plan to address problem: Most likely secondary to seizure and rhabdomyolysis. We will monitor the patient closely. D5 half-normal saline at the rate of 150 cc/h (6) Fragile X syndrome Current Visit: No Status: Acute Plan to address problem: Stable. We continue the home medication. Neurology evaluation (7) DVT prophylaxis Current Visit: No Status: Acute Plan to address problem: SCD for DVT prophylaxis. Pepcid 20 mg p.o. twice daily for GI prophylaxis. Patient is a full code
[2021-10-21] MEDS ORDERED: D5W/0.45% NACL 1,000 ML IV SCH (04:00)
[2021-10-21] MEDS ORDERED: IPRATROPIUM/ALBUTEROL SULFATE 3 ML AMPUL.NEB IH SCH (08:00)
--- NOTE | 2021-10-21 09:42 | Electrocardiograph Report ---
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
--- NOTE | 2021-10-21 09:44 | Electrocardiograph Report ---
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
[2021-10-21] MEDS: FAMOTIDINE 20 MG/2 ML INJ IV SCH ×2 (10:33→21:56)
[2021-10-21] MEDS: LACOSAMIDE 100 MG TAB PO SCH ×2 (10:33→21:50)
[2021-10-21] MEDS: levETIRAcetam 500 MG TAB PO SCH ×2 (10:33→21:49)
--- NOTE | 2021-10-21 11:30 | Progress Note ---
Assessment and Plan Assessment and plan: (1) Rhabdomyolysis /CK levels trending Admit the patient to the medical telemetry. .D5 half-normal saline at the rate of 150 cc/h. Closely monitor CK levels, preserved renal function CK; 12,000-10,000-3000 Continue vigorous IV fluids and follow CK levels Plenty of oral fluids (2) history of seizure seizure Seizure precautions, antiepileptic medication Do not drive, neurology consult, EEG requested CT head without contrast no acute abnormality Follow neurology evaluation recommendations (3) Lactic acidosis Continue IV fluids, trend lactic levels, normal range today Closely monitor (4) Leukocytosis Empiric antibiotics Rocephin 2 g IV daily. Follow cultures (5) Acute toxic metabolic encephalopathy Most likely secondary to seizure and rhabdomyolysis. Treat the underlying cause, follow closely CT head negative, neurology consulted (6) history of Fragile X syndrome Supportive care, neurology evaluation (7) DVT prophylaxis Subcu Lovenox r DVT prophylaxis. Pepcid 20 mg p.o. twice daily for GI prophylaxis. Patient is a full code Advance care plan +30 minutes Patient's condition discussed, patient diagnosed discussed, patient's treatment plan discussed Patient's prognosis discussed, patient's tests and reports discussed, patient treatment plan discussed in detail Brief history and Hospital course: 30-year-old mentally challenged patient was admitted with witnessed seizures and rhabdomyolysis; CK levels trending, patient did not have any new episodes of seizures after adm ission 10/22/2021; follow pending neurology evaluation recommendations Physical therapy occupational therapy, DC planning per case management Discharge when medically stable History Interval history: I have seen and examined the patient at the bedside this morning Patient's chart and medication list reviewed Patient was admitted with witnessed seizure, rhabdomyolysis No new episodes of seizures since admission Vital signs noted Patient is minimally communicative and confused Hospitalist Physical - Constitutional Vitals: Temp Pulse Resp BP Pulse Ox 98.6 F 106 H 18 110/76 98 10/21/21 06:09 10/21/21 10:31 10/21/21 10:31 10/21/21 06:09 10/21/21 10:47 General appearance: Present: no acute distress, well-nourished, other (Noncommunicative) - EENT Eyes: Present: PERRL, EOM intact - Neck Neck: Present: supple, normal ROM - Respiratory Respiratory effort: normal Respiratory: bilateral: diminished, negative: rales, rhonchi, wheezing - Cardiovascular Rhythm: regular Heart Sounds: Present: S1 & S2 - Extremities Extremities: no ischemia, No edema - Abdominal General gastrointestinal: soft, non-tender, non-distended, normal bowel sounds - Integumentary Integumentary: Present: clear, warm - Psychiatric Psychiatric: other (Confused at times, noncommunicative) - Neurologic Neurologic: moves all extremities Results - Labs CBC & Chem 7: 10/22/21 11:53 10/22/21 11:53 Labs: Laboratory Last Values WBC 14.9 K/mm3 (4.5-11.0) H 10/20/21 16:39 RBC 5.33 M/mm3 (3.65-5.03) H 10/20/21 16:39 Hgb 16.4 gm/dl (11.8-15.2) H 10/20/21 16:39 Hct 51.4 % (35.5-45.6) H 10/20/21 16:39 MCV 96 fl (84-94) H 10/20/21 16:39 MCH 31 pg (28-32) 10/20/21 16:39 MCHC 32 % (32-34) 10/20/21 16:39 RDW 14.6 % (13.2-15.2) 10/20/21 16:39 Plt Count 206 K/mm3 (140-440) 10/20/21 16:39 Sodium 145 mmol/L (137-145) 10/20/21 23:30 Potassium 3.9 mmol/L (3.6-5.0) 10/20/21 23:30 Chloride 107.9 mmol/L (98-107) H 10/20/21 23:30 Carbon Dioxide 21 mmol/L (22-30) L 10/20/21 23:30 Anion Gap 20 mmol/L 10/20/21 23:30 BUN 38 mg/dL (9-20) H 10/20/21 23:30 Creatinine 0.8 mg/dL (0.8-1.3) 10/20/21 23:30 Estimated GFR > 60 ml/min 10/20/21 23:30 BUN/Creatinine Ratio 48 % 10/20/21 23:30 Glucose 96 mg/dL (75-100) 10/20/21 23:30 Lactic Acid 1.60 mmol/L (0.7-2.0) 10/20/21 22:40 Calcium 9.4 mg/dL (8.4-10.2) 10/20/21 23:30 Magnesium 2.90 mg/dL (1.7-2.3) H 10/20/21 16:39 Total Bilirubin 1.10 mg/dL (0.1-1.2) 10/20/21 16:39 AST 186 units/L (5-40) H 10/20/21 16:39 ALT 50 units/L (7-56) 10/20/21 16:39 Alkaline Phosphatase 69 units/L (35-129) 10/20/21 16:39 Total Creatine Kinase 17217 units/L (55-170) H 10/20/21 23:30 Total Protein 8.1 g/dL (6.3-8.2) 10/20/21 16:39 Albumin 5.1 g/dL (3.9-5) H 10/20/21 16:39 Albumin/Globulin Ratio 1.7 % 10/20/21 16:39 Plasma/Serum Alcohol < 0.01 % (0-0.07) 10/20/21 16:39 Active Medications - Current Medications Current Medications: Generic Name Dose Route Start Last Admin Trade Name Freq PRN Reason Stop Dose Admin Acetaminophen 650 mg 10/21/21 03:41 Acetaminophen 325 Mg Tab PO Q4H PRN Pain MILD(1-3)/Fever >100.5/CHE Albuterol 2.5 mg 10/21/21 03:41 Albuterol 2.5 Mg/3 Ml Nebu IH Q4HRT PRN Shortness Of Breath Famotidine 20 mg 10/21/21 10:00 10/21/21 10:33 Famotidine 20 Mg/2 Ml Inj IV 20 mg BID AFSANEH Administration Dextrose/Sodium Chloride 1,000 mls @ 150 mls/hr 10/21/21 04:00 D5/0.45ns IV DIRECT AFSANEH Lacosamide 100 mg 10/21/21 10:00 10/21/21 10:33 Lacosamide 100 Mg Tab PO 100 mg Q12HR AFSANEH Administration Levetiracetam 1,000 mg 10/21/21 10:00 10/21/21 10:33 Levetiracetam 500 Mg Tab PO 1,000 mg BID AFSANEH Administration Morphine Sulfate 2 mg 10/21/21 03:41 Morphine 2 Mg/1 Ml Inj IV Q4H PRN Pain, Moderate (4-6) Morphine Sulfate 4 mg 10/21/21 03:41 Morphine 4 Mg/1 Ml Inj IV Q4H PRN Pain , Severe (7-10) Ondansetron HCl 4 mg 10/21/21 03:41 Ondansetron 4 Mg/2 Ml Inj IV Q8H PRN Nausea And Vomiting Sodium Chloride 10 ml 10/21/21 10:00 10/21/21 10:33 Sodium Chloride 0.9% 10 Ml Flush Syringe IV 10 ml BID AFSANEH Administration Sodium Chloride 10 ml 10/21/21 03:41 Sodium Chloride 0.9% 10 Ml Flush Syringe IV PRN PRN LINE FLUSH
[2021-10-21 16:25] LABS: Mucus,Urine 3+ /HPF
[2021-10-21 16:28] LABS: Amphetamine Screen,Urine Negative; Benzodiazepines Screen,Urine Negative; Cannabinoid Screen,Urine Negative; Cocaine Screen,Urine Negative; Methadone Screen,Urine Negative; Opiate Screen,Urine Negative
[2021-10-21 16:36] LABS: Color,Urine Straw (Yellow)
[2021-10-21] MEDS: ENOXAPARIN 40 MG/0.4 ML INJ SUB-Q SCH (21:56)
[2021-10-22] MEDS: LACOSAMIDE 100 MG TAB PO SCH ×2 (11:55→21:19)
[2021-10-22] MEDS: FAMOTIDINE 20 MG TAB PO SCH ×2 (11:55→21:19)
[2021-10-22] MEDS: levETIRAcetam 500 MG TAB PO SCH ×2 (11:55→21:19)
[2021-10-22 12:28] LABS: Basophils % (Auto) 0.5 % (0.0-1.8); Eosinophils % (Auto) 0.5 % (0.0-4.3); Hematocrit 45.7 % (35.5-45.6); Hemoglobin 15.2 gm/dl (11.8-15.2); Lymphocytes # (Auto) 1.4 K/mm3 (1.2-5.4); Lymphocytes % (Auto) 15.1 % (13.4-35.0); Mean Corpuscular HGB Conc 33 % (32-34); Mean Corpuscular Volume 92 fl (84-94); Platelet Count 232 K/mm3 (140-440); Red Blood Count 4.94 M/mm3 (3.65-5.03)
[2021-10-22 12:52] LABS: BUN/Creatinine Ratio 34; Blood Urea Nitrogen 31 mg/dL (9-20); Calcium 9.8 mg/dL (8.4-10.2); Hemolysis Index 2
[2021-10-22] MEDS: ENOXAPARIN 40 MG/0.4 ML INJ SUB-Q SCH (21:19)
--- NOTE | 2021-10-23 05:34 | Progress Note ---
Assessment and Plan Assessment and plan: (1) Rhabdomyolysis /CK levels trending Admit the patient to the medical telemetry. .D5 half-normal saline at the rate of 150 cc/h. Closely monitor CK levels, preserved renal function CK; 12,000-10,000 Continue vigorous IV fluids and follow CK levels Plenty of oral fluids (2) history of seizure seizure Seizure precautions, antiepileptic medication Do not drive, neurology consult, EEG requested CT head without contrast no acute abnormality Follow neurology evaluation recommendations (3) Lactic acidosis Continue IV fluids, trend lactic levels, normal range today Closely monitor (4) Leukocytosis Empiric antibiotics Rocephin 2 g IV daily. Follow cultures (5) Acute toxic metabolic encephalopathy Most likely secondary to seizure and rhabdomyolysis. Treat the underlying cause, follow closely CT head negative, neurology consulted (6) history of Fragile X syndrome Supportive care, neurology evaluation (7) DVT prophylaxis Subcu Lovenox r DVT prophylaxis. Pepcid 20 mg p.o. twice daily for GI prophylaxis. Patient is a full code Prolonged care inpatient service 32 minutes Advance care plan +30 minutes Patient's condition discussed, patient diagnosed discussed, patient's treatment plan discussed Patient's prognosis discussed, patient's tests and reports discussed, patient treatment plan discussed in detail Brief history and Hospital course: 30-year-old mentally challenged patient was admitted with witnessed seizures and rhabdomyolysis; CK levels trending, 12,002 10,000 ,patient did not have any new episodes of seizures after admission 10/21/2021; follow pending neurology evaluation recommendations Physical therapy occupational therapy, DC planning per case management Discharge when medically stable History Interval history: 30-year-old male patient was admitted with seizures rhabdomyolysis Seen and examined the patient at the bedside Patient's chart and medications reviewed No new episodes of seizures after admission CK levels trending down Patient is mentally challenged/Fragile X syndrome Vital signs noted Hospitalist Physical - Constitutional Vitals: Temp Pulse Resp BP Pulse Ox 97.7 F 105 H 20 112/78 98 10/23/21 04:59 10/23/21 04:59 10/23/21 05:00 10/23/21 04:59 10/23/21 05:00 General appearance: Present: no acute distress, well-nourished, other (N oncommunicative, confused) - EENT Eyes: Present: PERRL, EOM intact - Neck Neck: Present: supple, normal ROM - Respiratory Respiratory effort: normal Respiratory: bilateral: diminished, negative: rales, rhonchi, wheezing - Cardiovascular Rhythm: regular Heart Sounds: Present: S1 & S2 - Extremities Extremities: no ischemia, No edema, abnormal (Contracted) - Abdominal General gastrointestinal: soft, non-tender, non-distended - Integumentary Integumentary: Present: clear, warm - Psychiatric Psychiatric: other (Developmental delay/impaired cognition/) - Neurologic Neurologic: moves all extremities Results - Labs CBC & Chem 7: 10/22/21 11:53 10/22/21 11:53 Labs: Laboratory Last Values WBC 9.5 K/mm3 (4.5-11.0) 10/22/21 11:53 RBC 4.94 M/mm3 (3.65-5.03) 10/22/21 11:53 Hgb 15.2 gm/dl (11.8-15.2) 10/22/21 11:53 Hct 45.7 % (35.5-45.6) H 10/22/21 11:53 MCV 92 fl (84-94) 10/22/21 11:53 MCH 31 pg (28-32) 10/22/21 11:53 MCHC 33 % (32-34) 10/22/21 11:53 RDW 14.0 % (13.2-15.2) 10/22/21 11:53 Plt Count 232 K/mm3 (140-440) 10/22/21 11:53 Lymph % (Auto) 15.1 % (13.4-35.0) 10/22/21 11:53 Holmes % (Auto) 10.0 % (0.0-7.3) H 10/22/21 11:53 Eos % (Auto) 0.5 % (0.0-4.3) 10/22/21 11:53 Baso % (Auto) 0.5 % (0.0-1.8) 10/22/21 11:53 Lymph # (Auto) 1.4 K/mm3 (1.2-5.4) 10/22/21 11:53 Holmes # (Auto) 1.0 K/mm3 (0.0-0.8) H 10/22/21 11:53 Eos # (Auto) 0.0 K/mm3 (0.0-0.4) 10/22/21 11:53 Baso # (Auto) 0.0 K/mm3 (0.0-0.1) 10/22/21 11:53 Seg Neutrophils % 73.9 % (40.0-70.0) H 10/22/21 11:53 Seg Neutrophils # 7.0 K/mm3 (1.8-7.7) 10/22/21 11:53 Sodium 146 mmol/L (137-145) H 10/22/21 11:53 Potassium 4.1 mmol/L (3.6-5.0) 10/22/21 11:53 Chloride 106.5 mmol/L (98-107) 10/22/21 11:53 Carbon Dioxide 26 mmol/L (22-30) 10/22/21 11:53 Anion Gap 18 mmol/L 10/22/21 11:53 BUN 31 mg/dL (9-20) H 10/22/21 11:53 Creatinine 0.9 mg/dL (0.8-1.3) 10/22/21 11:53 Estimated GFR > 60 ml/min 10/22/21 11:53 BUN/Creatinine Ratio 34 % 10/22/21 11:53 Glucose 104 mg/dL (75-100) H 10/22/21 11:53 Lactic Acid 1.60 mmol/L (0.7-2.0) 10/20/21 22:40 Calcium 9.8 mg/dL (8.4-10.2) 10/22/21 11:53 Magnesium 2.90 mg/dL (1.7-2.3) H 10/20/21 16:39 Total Bilirubin 1.10 mg/dL (0.1-1.2) 10/20/21 16:39 AST 186 units/L (5-40) H 10/20/21 16:39 ALT 50 units/L (7-56) 10/20/21 16:39 Alkaline Phosphatase 69 units/L (35-129) 10/20/21 16:39 Total Creatine Kinase 3761 units/L (55-170) H 10/22/21 11:53 Total Protein 8.1 g/dL (6.3-8.2) 10/20/21 16:39 Albumin 5.1 g/dL (3.9-5) H 10/20/21 16:39 Albumin/Globulin Ratio 1.7 % 10/20/21 16:39 Urine Color Straw (Yellow) 10/20/21 Unknown Urine Turbidity Clear (Clear) 10/20/21 Unknown Specific [place] (Man) 1.010 (1.003-1.030) 10/20/21 Unknown Ur Protein (Man) 2+ mg/dL (Negative) 10/20/21 Unknown Ur Ketones (Man) 160 (Negative) 10/20/21 Unknown Ur Nitrite (Man) Negative (Negative) 10/20/21 Unknown Ur Reducing Substances Not Reportable 10/20/21 Unknown Urine Bilirubin (Man) Negative (Negative) 10/20/21 Unknown Urine Ictotest Not Reportable 10/20/21 Unknown Leukocyte Esterase (Man) Negative (Negative) 10/20/21 Unknown Urine WBC (Auto) 3.0 /HPF (0.0-6.0) 10/20/21 Unknown Urine RBC (Auto) 19.0 /HPF (0.0-6.0) 10/20/21 Unknown U Epithel Cells (Auto) 1.0 /HPF (0-13.0) 10/20/21 Unknown Urine RBC (Manual) 3+ (Negative) 10/20/21 Unknown Urine Mucus 3+ /HPF 10/20/21 Unknown Urine Opiates Screen Negative 10/20/21 16:13 Urine Methadone Screen Negative 10/20/21 16:13 Ur Barbiturates Screen Negative 10/20/21 16:13 Ur Phencyclidine Scrn Negative 10/20/21 16:13 Ur Amphetamines Screen Negative 10/20/21 16:13 U Benzodiazepines Scrn Negative 10/20/21 16:13 Urine Cocaine Screen Negative 10/20/21 16:13 U Marijuana (THC) Screen Negative 10/20/21 16:13 Drugs of Abuse Note Disclamer 10/20/21 16:13 Plasma/Serum Alcohol < 0.01 % (0-0.07) 10/20/21 16:39 Flores/IV: Voiding Method Toilet Active Medications - Current Medications Current Medications: Generic Name Dose Route Start Last Admin Trade Name Freq PRN Reason Stop Dose Admin Acetaminophen 650 mg 10/21/21 03:41 Acetaminophen 325 Mg Tab PO Q4H PRN Pain MILD(1-3)/Fever >100.5/CHE Albuterol 2.5 mg 10/21/21 03:41 Albuterol 2.5 Mg/3 Ml Nebu IH Q4HRT PRN Shortness Of Breath Enoxaparin Sodium 40 mg 10/21/21 22:00 10/22/21 21:19 Enoxaparin 40 Mg/0.4 Ml Inj SUB-Q 40 mg QDAY@2200 AFSANEH Administration Protocol Famotidine 20 mg 10/22/21 10:00 10/22/21 21:19 Famotidine 20 Mg Tab PO 20 mg BID AFSANEH Administration Dextrose/Sodium Chloride 1,000 mls @ 150 mls/hr 10/21/21 04:00 10/22/21 05:46 D5/0.45ns IV 150 mls/hr DIRECT AFSANEH Administration Lacosamide 100 mg 10/21/21 10:00 10/22/21 21:19 Lacosamide 100 Mg Tab PO 100 mg Q12HR AFSANEH Administration Levetiracetam 1,000 mg 10/21/21 10:00 10/22/21 21:19 Levetiracetam 500 Mg Tab PO 1,000 mg BID AFSANEH Administration Morphine Sulfate 2 mg 10/21/21 03:41 Morphine 2 Mg/1 Ml Inj IV Q4H PRN Pain, Moderate (4-6) Morphine Sulfate 4 mg 10/21/21 03:41 Morphine 4 Mg/1 Ml Inj IV Q4H PRN Pain , Severe (7-10) Ondansetron HCl 4 mg 10/21/21 03:41 Ondansetron 4 Mg/2 Ml Inj IV Q8H PRN Nausea And Vomiting Sodium Chloride 10 ml 10/21/21 10:00 10/22/21 21:20 Sodium Chloride 0.9% 10 Ml Flush Syringe IV 10 ml BID AFSANEH Administration Sodium Chloride 10 ml 10/21/21 03:41 Sodium Chloride 0.9% 10 Ml Flush Syringe IV PRN PRN LINE FLUSH
[2021-10-23] MEDS: LACOSAMIDE 100 MG TAB PO SCH ×2 (09:54→22:27)
[2021-10-23] MEDS: levETIRAcetam 500 MG TAB PO SCH ×2 (09:54→22:27)
[2021-10-23] MEDS: FAMOTIDINE 20 MG TAB PO SCH ×2 (09:54→22:27)
--- NOTE | 2021-10-23 14:40 | Consultation ---
History of Present Illness Consult date: 10/23/21 Chief complaint: Seizures History of present illness: The consult was requested for management of Seizures, per notes no seizure while in the hospital. Past History Past Medical History: seizures, other (Mental retardation) Past Surgical History: Other (Cannot be obtained from the patient secondary to fragile X and developmental delay) Social history: no significant social history Family history: hypertension Medications and Allergies Allergies Allergy/AdvReac Type Severity Reaction Status Date / Time No Known Allergies Allergy Verified 10/05/21 10:50 Home Medications Medication Instructions Recorded Confirmed Last Taken Type Lacosamide [Vimpat] 100 mg PO Q12HR #60 tablet 11/07/20 11/25/20 Unknown Rx levETIRAcetam [Keppra TAB] 500 mg PO BID 30 Days #60 tablet 11/26/20 Unknown Rx Vimpat 01/13/21 Unknown History levETIRAcetam [Keppra TAB] 500 mg PO BID #60 tablet 06/10/21 Unknown Rx levETIRAcetam [Keppra TAB] 1,000 mg PO BID #120 tablet 08/19/21 Unknown Rx levETIRAcetam [Keppra TAB] 1,000 mg PO BID 30 Days #60 tablet 09/11/21 Unknown Rx NS Active Meds: Active Medications Acetaminophen (Acetaminophen 325 Mg Tab) 650 mg PO Q4H PRN PRN Reason: Pain MILD(1-3)/Fever >100.5/CHE Albuterol (Albuterol 2.5 Mg/3 Ml Nebu) 2.5 mg IH Q4HRT PRN PRN Reason: Shortness Of Breath Enoxaparin Sodium (Enoxaparin 40 Mg/0.4 Ml Inj) 40 mg SUB-Q QDAY@2200 AFSANEH; Protocol Last Admin: 10/22/21 21:19 Dose: 40 mg Famotidine (Famotidine 20 Mg Tab) 20 mg PO BID [facility] Last Admin: 10/23/21 09:54 Dose: 20 mg Dextrose/Sodium Chloride (D5/0.45ns) 1,000 mls @ 150 mls/hr IV DIRECT AFSANEH Last Admin: 10/22/21 05:46 Dose: 150 mls/hr Lacosamide (Lacosamide 100 Mg Tab) 100 mg PO Q12HR [facility] Last Admin: 08/30/22 09:54 Dose: 100 mg Levetiracetam (Levetiracetam 500 Mg Tab) 1,000 mg PO BID [facility] Last Admin: 10/23/21 09:54 Dose: 1,000 mg Morphine Sulfate (Morphine 2 Mg/1 Ml Inj) 2 mg IV Q4H PRN PRN Reason: Pain, Moderate (4-6) Morphine Sulfate (Morphine 4 Mg/1 Ml Inj) 4 mg IV Q4H PRN PRN Reason: Pain , Severe (7-10) Ondansetron HCl (Ondansetron 4 Mg/2 Ml Inj) 4 mg IV Q8H PRN PRN Reason: Nausea And Vomiting Sodium Chloride (Sodium Chloride 0.9% 10 Ml Flush Syringe) 10 ml IV BID [facility] Last Admin: 10/23/21 09:54 Dose: 10 ml Sodium Chloride (Sodium Chloride 0.9% 10 Ml Flush Syringe) 10 ml IV PRN PRN PRN Reason: LINE FLUSH Physical Examination - Vital Signs Vital Signs: Vital Signs Temp Pulse Resp BP Pulse Ox 98.2 F 104 H 18 141/91 99 10/20/21 16:02 10/20/21 16:02 10/20/21 16:02 10/20/21 16:02 10/20/21 16:02 - Physical Exam Narrative exam: The patient is alert , follows mid line command, speech has mainly dysarthria . Gait is not tested . Results - Laboratory Findings CBC and BMP: 10/22/21 11:53 10/22/21 11:53 Abnormal Lab Findings: Abnormal Labs 10/20/21 10/20/21 10/20/21 16:39 16:39 16:39 WBC 14.9 H RBC 5.33 H Hgb 16.4 H Hct 51.4 H MCV 96 H [place] % (Auto) [place] # (Auto) Seg Neutrophils % Sodium Chloride Carbon Dioxide 21 L BUN 49 H Glucose Lactic Acid 2.20 H* Magnesium 2.90 H AST 186 H Total Creatine Kinase 61867 H Albumin 5.1 H 10/20/21 10/20/21 10/22/21 23:30 23:30 11:53 WBC RBC Hgb Hct 45.7 H MCV [place] % (Auto) 10.0 H [place] # (Auto) 1.0 H Seg Neutrophils % 73.9 H Sodium Chloride 107.9 H Carbon Dioxide 21 L BUN 38 H Glucose Lactic Acid Magnesium AST Total Creatine Kinase 52052 H Albumin 10/22/21 10/23/21 11:53 07:56 WBC RBC Hgb Hct MCV [place] % (Auto) [place] # (Auto) Seg Neutrophils % Sodium 146 H Chloride Carbon Dioxide BUN 31 H Glucose 104 H Lactic Acid Magnesium AST Total Creatine Kinase 3761 H 1655 H Albumin Assessment and Plan 1. Secondarily Generalized Seizures - Reviewed CT Brain - no evidence mass. 2. Continue Seizure Medications no change is recommended at present . 3. No family in room to discuss . 4. Follow up with results Call Back with Questions Dr. Asif
--- NOTE | 2021-10-23 14:57 | Progress Note ---
Assessment and Plan (1) Rhabdomyolysis /CK levels trending down Admit the patient to the medical telemetry. cont D5 half-normal saline at the rate of 150 cc/h. Closely monitor CK levels, preserved renal function CK; 12,000-10,[phone] Continue vigorous IV fluids and follow CK levels Plenty of oral fluids (2) history of seizure seizure Seizure precautions, antiepileptic medication Do not drive, neurology consult, EEG requested CT head without contrast no acute abnormality Follow neurology evaluation recommendations (3) Lactic acidosis Continue IV fluids, trend lactic levels, normal range today Closely monitor (4) Leukocytosis, likely reactive Empiric antibiotics Rocephin 2 g IV daily. Follow cultures (5) Acute toxic metabolic encephalopathy Most likely secondary to seizure and rhabdomyolysis. Treat the underlying cause, follow closely CT head negative, neurology consulted (6) history of Fragile X syndrome Supportive care, neurology evaluation (7) DVT prophylaxis Subcu Lovenox r DVT prophylaxis. Pepcid 20 mg p.o. twice daily for GI prophylaxis. Patient is a full code Brief history and Hospital course: 30-year-old mentally challenged patient was admitted with witnessed seizures and rhabdomyolysis; CK levels trending, patient did not have any new episodes of seizures after admission 10/22/2021; follow pending neurology evaluation recommendations Physical therapy occupational therapy, DC planning per case management Discharge when medically stable 10/23/21: Neuro recommended to cont keppra. cont to monitor CPK level. possible dc tomorrow if CPK cot to improve. Subjective Date of service: 10/23/21 Interval history: Patient seen and examined. Medical records and medication list reviewed. No acute event overnight noted by the RN. Patient denies any chest pain or difficulty breathing. Patient is tolerating diet. Objective - Exam Narrative Exam: GENERAL: well-developed and well-nourished -[place] male lying on bed appeared to be in no discomfort. HEENT: Normocephalic. Atraumatic. No conjunctival congestion or icterus. Patient has moist mucous membranes. NECK: Supple. Trachea midline. CHEST/LUNGS: Clear to auscultated bilaterally, breathing nonlabored. No wheezes crackles or rhonchi. HEART/CARDIOVASCULAR: Regular in rate and rhythm. S1 and S2 positive. ABDOMEN: Abdomen is soft, nontender. Patient has normal bowel sounds. SKIN: There is no rash. Warm and dry. NEURO: No focal motor deficit. Follows command. MUSCULOSKELETAL: No joint effusion or tenderness. EXTRIMITY: No edema, no cyanosis or clubbing. PSYCH: Cooperative. - Constitutional Vitals: Vital Signs - 12hr 10/23/21 10/23/21 10/23/21 04:59 05:00 08:33 Temperature 97.7 F Pulse Rate 105 H Respiratory 18 20 Rate Blood Pressure 112/78 O2 Sat by Pulse 95 98 98 Oximetry 10/23/21 11:47 Temperature 97.6 F Pulse Rate 86 Respiratory 16 Rate Blood Pressure 130/84 O2 Sat by Pulse 100 Oximetry - Labs CBC & Chem 7: 10/22/21 11:53 10/22/21 11:53 Labs: Abnormal lab results 10/20/21 10/23/21 Range/Units 16:39 07:56 Total Creatine Kinase 1655 H (55-170) units/L Levetiracetam 65.7 H (6.0-46.0) mcg/mL
[2021-10-23] MEDS: ENOXAPARIN 40 MG/0.4 ML INJ SUB-Q SCH (22:26)
[2021-10-24] MEDS: levETIRAcetam 500 MG TAB PO SCH (09:17)
[2021-10-24] MEDS: LACOSAMIDE 100 MG TAB PO SCH (09:17)
[2021-10-24] MEDS: FAMOTIDINE 20 MG TAB PO SCH (09:17)
--- NOTE | 2021-10-24 13:36 | Discharge Summary ---
Providers - Providers Date of Admission: 10/22/21 09:56 Date of discharge: 10/24/21 Attending physician: NICK NINO 10/20/21 19:47 Consult to Case Management [CONS] Stat Services Needed at Discharge: Founder / Ceo Notified:: Abida 10/21/21 03:41 Consult to Physician [CONS] Routine Comment: Consulting Provider: CAR ANG Physician Instructions: Reason For Exam: seizure Primary care physician: TESS BACON Hospitalization Condition: Stable Hospital course: 30-year-old mentally challenged patient was admitted with witnessed seizures and rhabdomyolysis; CK levels trending, patient did not have any new episodes of seizures after admission 10/22/2021; follow pending neurology evaluation recommendations Physical therapy occupational therapy, DC planning per case management Discharge when medically stable 10/23/21: Neuro recommended to cont keppra. cont to monitor CPK level. possible dc tomorrow if CPK cot to improve. Disposition: 30 STILL A PATIENT Final Discharge Diagnosis (Prints w/discharge instructions): (1) Rhabdomyolysis. (2) history of seizure. (3) Lactic acidosis, likely dehydration. (4) Leukocytosis, likely reactive. (5) Acute toxic metabolic encephalopathy. Most likely secondary to seizure and rhabdomyolysis. Treat the underlying cause, follow closely. CT head negative, neurology consulted. (6) history of Fragile X syndrome. Supportive care, neurology evaluation Time spent for discharge: 34 minutes Core Measure Documentation - Palliative Care Palliative Care/ Comfort Measures: Not Applicable - Core Measures Any of the following diagnoses?: none Exam - Physical Exam Narrative exam: GENERAL: well-developed and well-nourished -[place]ong[place]ian male lying on bed appeared to be in no discomfort. HEENT: Normocephalic. Atraumatic. No conjunctival congestion or icterus. Patient has moist mucous membranes. NECK: Supple. Trachea midline. CHEST/LUNGS: Clear to auscultated bilaterally, breathing nonlabored. No wheezes crackles or rhonchi. HEART/CARDIOVASCULAR: Regular in rate and rhythm. S1 and S2 positive. ABDOMEN: Abdomen is soft, nontender. Patient has normal bowel sounds. SKIN: There is no rash. Warm and dry. NEURO: No focal motor deficit. Follows command. MUSCULOSKELETAL: No joint effusion or tenderness. EXTRIMITY: No edema, no cyanosis or clubbing. PSYCH: Cooperative. - Constitutional Vitals: Temp Pulse Resp BP Pulse Ox 97.6 F 99 H 16 120/81 98 10/24/21 11:39 10/24/21 11:39 10/24/21 11:39 10/24/21 11:39 10/24/21 11:39 Plan Activity: advance as tolerated Weight Bearing Status: Non-Weight Bearing Diet: regular Follow up with: TESS BACON MD [Primary Care Provider] - 3-5 Days
[2021-10-24 16:10] VITALS: BP 127/74
== END 2021-10-24 20:33 | disposition home or self-care (01) | DRG 558 ==
LOC: ED 16:02 → 3A 10-21 01:09 → OBSVTOIN 10-22 09:56
PROVIDERS: ADMIT Hospitalist; ATTEND Internal Medicine
DX: M62.82 Rhabdomyolysis (principal); G40.909 Epilepsy, unspecified, not intractable, without status epilepticus; E87.2 Acidosis; D72.829 Elevated white blood cell count, unspecified; Q99.2 Fragile X chromosome; Z82.49 Family history of ischemic heart disease and other diseases of the circulatory system; E86.0 Dehydration
CPT/HCPCS: 36415; 70450; 71045; 80048; 80053; 80177; 80307; 80320; 81001; 82140; 82550; 83735; 85025; 85027; 93005; 94640; 99285; G0378; J3490; J7060; J7070; G0480; J1650; J1953; J3475; J7030